=== PATIENT | male | born 1980 | race Caucasian/White ===

== ENCOUNTER 2020-02-19 13:49 | Emergency (ER) | payer SELFPAY ==
[~2020-02-19] VITALS: Ht 180.3 cm; Wt 62.0 kg
[2020-02-19] MEDS ORDERED: HYDROCODONE/ACETAMINOPHEN 5/325MG TABLET PO ONE (14:30)
[2020-02-19] MEDS ORDERED: BACITRACIN ZINC OINT UDPKT TOP ONE (15:30)
[2020-02-19] MEDS ORDERED: TETANUS, DIPHTHERIA, PERTUSSIS VAC/PF 0.5ML (>7YR OLD) IM ONE (15:30)
[2020-02-19] MEDS ORDERED: LIDOCAINE HCL/PF 1% 10 MG/ML 5ML VIAL IJ ONE (15:30)
[2020-02-19] MEDS ORDERED: CEFAZOLIN SODIUM 1000MG/VIAL IM ONE (17:00)
[2020-02-19] MEDS ORDERED: MORPHINE SULFATE 10 MG/ML CPJ IM ONE (17:00)
[2020-02-19 17:05] VITALS: BP 116/79
[2020-02-19] MEDS ORDERED: LIDOCAINE HCL 1% 20ML VIAL (Pyxis) INJ INFIL ONE (17:15)
== END 2020-02-19 18:17 | disposition home or self-care (01) ==
LOC: ER 14:06
DX: S62.631A Displaced fracture of distal phalanx of left index finger, initial encounter for closed fracture (principal); W26.8XXA Contact with other sharp object(s), not elsewhere classified, initial encounter; Y93.89 Activity, other specified; Y92.89 Other specified places as the place of occurrence of the external cause; Y99.8 Other external cause status
CPT/HCPCS: 12004; 73140; 90471; 90715; 96372; 99284; J0690; J2270; J3490